=== PATIENT | male | born 1955 | race African-American/Black ===

== ENCOUNTER 2020-11-21 16:55 | Inpatient (IN) | payer BC ==
[~2020-11-21] VITALS: Ht 177.8 cm; Wt 139.7 kg
[~2020-11-21 16:55] MED LIST: APIX5TAB MT; FURO20TA4 PO; HYDR-4001 PO; TAMS-11 PO; norco
[2020-11-21] MEDS ORDERED: LEVETIRACETAM 500MG PREMIX 100 ML IV ONE (17:30)
[2020-11-21 17:55] LABS: BASOPHILS % 0.5 % (0.0-2.0); EOSINOPHILS % 3.2 % (0.0-5.0); HEMATOCRIT. 32.9 % (42.0-52.0); HEMOGLOBIN. 11.1 g/dL (14.0-18.0); LYMPHOCYTES % 9.5 % (20.0-50.0); MEAN CORPUSCULAR HEMOGLOBIN 31.1 pg (28.0-32.0); MEAN CORPUSCULAR VOLUME 92.2 fL (80.0-94.0); MEAN PLATELET VOLUME 6.4 fl (7.4-10.4); MONOCYTES % 14.2 % (2.0-8.0); NEUTROPHILS % 72.6 % (40.0-76.0); PLATELET 79 x1000/uL (130-400); RED BLOOD CELL COUNT 3.56 mill/uL (4.7-6.1); RED CELL DISTRIBUTION WIDTH 15.7 % (11.6-14.6)
[2020-11-21 18:14] LABS: CHLORIDE 106 mEq/L (98-107)
[2020-11-21] MEDS ORDERED: POTASSIUM CHLORIDE 20MEQ TABLET SR PO NR (18:30)
[2020-11-21 20:19] LABS: CLARITY URINE CLEAR (CLEAR); COLOR URINE DARK YELLOW (YELLOW); KETONES URINE TRACE (NEGATIVE); LEUKOCYTE ESTERASE URINE TRACE (NEGATIVE); NITRITE URINE NEGATIVE (NEGATIVE); OCCULT BLOOD URINE 3+ (NEGATIVE); PROTEIN URINE TRACE (NEGATIVE); SPECIFIC GRAVITY URINE 1.031 (1.005-1.030)
[2020-11-21] MEDS ORDERED: DEXAMETHASONE 10 MG/ML VIAL IV ONE (21:30)
[2020-11-21] MEDS ORDERED: CLONIDINE 0.1MG TABLET PO PRN (22:30)
[2020-11-21] MEDS ORDERED: LORAZEPAM 2MG/ML CPJ IV PRN (22:30)
[2020-11-21] MEDS ORDERED: ONDANSETRON HCL 4MG/2ML INJ IV PRN (22:30)
[2020-11-21] MEDS: SODIUM CHLORIDE 0.45% 1,000 ML IV SCH (22:34)
[2020-11-22] VITALS: BP 115/60
[2020-11-22] MEDS: DEXAMETHASONE 4MG/ML 1ML VIAL IV SCH ×4 (00:29→18:50)
[2020-11-22 04:00] VITALS: BP 124/79
[2020-11-22 07:16] LABS: CHLORIDE 106 mEq/L (98-107)
[2020-11-22 07:44] LABS: HEMOGLOBIN. 10.9 g/dL (14.0-18.0); MEAN CORPUSCULAR HEMOGLOBIN 31.4 pg (28.0-32.0); MEAN CORPUSCULAR VOLUME 92.1 fL (80.0-94.0); MEAN PLATELET VOLUME 6.4 fl (7.4-10.4); PLATELET 56 x1000/uL (130-400); RED BLOOD CELL COUNT 3.47 mill/uL (4.7-6.1); RED CELL DISTRIBUTION WIDTH 15.7 % (11.6-14.6)
[2020-11-22 08:00] VITALS: BP 113/56
[2020-11-22] MEDS ORDERED: LEVETIRACETAM 500MG PREMIX 100 ML IV SCH ×2 (09:00→11:30)
[2020-11-22] MEDS: AMLODIPINE 10MG TABLET PO SCH (10:08)
[2020-11-22] MEDS ORDERED: APIXABAN 5 MG TABLET PO SCH (10:15)
[2020-11-22 12:00] VITALS: BP 109/56
[2020-11-22] MEDS: TAMSULOSIN HCL 0.4MG SR CAPSULE PO SCH (12:07)
[2020-11-22] MEDS: SODIUM CHLORIDE 0.45% 1,000 ML IV SCH (12:08)
[2020-11-22] MEDS: FUROSEMIDE 20MG TABLET PO SCH ×2 (12:08→21:14)
[2020-11-22 16:00] VITALS: BP 125/60
[2020-11-22 18:07] LABS: PLATELET ESTIMATE DECREASED
[2020-11-22 20:00] VITALS: BP 122/57
[2020-11-22] MEDS: LEVETIRACETAM 500MG TABLET PO SCH (21:14)
[2020-11-23] VITALS: BP 116/60
[2020-11-23] MEDS: DEXAMETHASONE 4MG/ML 1ML VIAL IV SCH ×5 (00:11→23:18)
[2020-11-23 04:00] VITALS: BP 124/72
[2020-11-23 08:00] VITALS: BP 118/70
[2020-11-23] MEDS: LEVETIRACETAM 500MG TABLET PO SCH ×2 (09:01→20:19)
[2020-11-23] MEDS: FUROSEMIDE 20MG TABLET PO SCH ×2 (09:01→20:19)
[2020-11-23] MEDS: TAMSULOSIN HCL 0.4MG SR CAPSULE PO SCH (09:02)
[2020-11-23] MEDS: AMLODIPINE 10MG TABLET PO SCH (09:02)
[2020-11-23 12:00] VITALS: BP 119/64
[2020-11-23 16:00] VITALS: BP 108/61
[2020-11-23 20:00] VITALS: BP 111/60
[2020-11-24] VITALS: BP 119/83
[2020-11-24 04:00] VITALS: BP 123/68
[2020-11-24] MEDS: SODIUM CHLORIDE 0.45% 1,000 ML IV SCH ×2 (04:41→16:59)
[2020-11-24] MEDS: DEXAMETHASONE 4MG/ML 1ML VIAL IV SCH ×4 (05:22→23:09)
[2020-11-24 08:00] VITALS: BP 97/42
[2020-11-24] MEDS: TAMSULOSIN HCL 0.4MG SR CAPSULE PO SCH (10:02)
[2020-11-24] MEDS: FUROSEMIDE 20MG TABLET PO SCH ×2 (10:02→20:44)
[2020-11-24] MEDS: AMLODIPINE 10MG TABLET PO SCH (10:02)
[2020-11-24] MEDS: LEVETIRACETAM 500MG TABLET PO SCH ×2 (10:02→20:44)
[2020-11-24 12:00] VITALS: BP 112/60
[2020-11-24 16:00] VITALS: BP 107/62
[2020-11-24 20:00] VITALS: BP 109/59
[2020-11-25] VITALS: BP 97/58
[2020-11-25 04:00] VITALS: BP 113/66
[2020-11-25] MEDS: DEXAMETHASONE 4MG/ML 1ML VIAL IV SCH ×3 (05:00→17:08)
[2020-11-25] MEDS: SODIUM CHLORIDE 0.45% 1,000 ML IV SCH ×2 (05:00→20:32)
[2020-11-25 08:00] VITALS: BP 110/68
[2020-11-25] MEDS: LEVETIRACETAM 500MG TABLET PO SCH ×2 (08:33→20:32)
[2020-11-25] MEDS: AMLODIPINE 10MG TABLET PO SCH (08:33)
[2020-11-25] MEDS: FUROSEMIDE 20MG TABLET PO SCH ×2 (08:33→20:32)
[2020-11-25] MEDS: TAMSULOSIN HCL 0.4MG SR CAPSULE PO SCH (08:34)
[2020-11-25 12:00] VITALS: BP 116/66
[2020-11-25 16:00] VITALS: BP 118/73
[2020-11-25] MEDS: ACETAMINOPHEN 325MG TABLET PO PRN (17:08)
[2020-11-25 20:00] VITALS: BP 109/65
[2020-11-26] VITALS: BP 139/77
[2020-11-26] MEDS: DEXAMETHASONE 4MG/ML 1ML VIAL IV SCH ×5 (02:13→23:37)
[2020-11-26 04:00] VITALS: BP 123/70
[2020-11-26 08:00] VITALS: BP 158/65
[2020-11-26] MEDS: TAMSULOSIN HCL 0.4MG SR CAPSULE PO SCH (08:33)
[2020-11-26] MEDS: FUROSEMIDE 20MG TABLET PO SCH ×2 (08:33→21:13)
[2020-11-26] MEDS: LEVETIRACETAM 500MG TABLET PO SCH ×2 (08:33→21:13)
[2020-11-26] MEDS: AMLODIPINE 10MG TABLET PO SCH (08:33)
[2020-11-26] MEDS: SODIUM CHLORIDE 0.45% 1,000 ML IV SCH ×2 (08:34→21:54)
[2020-11-26 12:00] VITALS: BP 105/58
[2020-11-26 16:00] VITALS: BP 117/60
[2020-11-26 20:00] VITALS: BP 108/61
[2020-11-27 00:15] VITALS: BP 109/65
[2020-11-27 04:00] VITALS: BP 115/61
[2020-11-27] MEDS: DEXAMETHASONE 4MG/ML 1ML VIAL IV SCH ×2 (05:09→13:03)
[2020-11-27 08:00] VITALS: BP 114/64
[2020-11-27] MEDS: FUROSEMIDE 20MG TABLET PO SCH ×2 (09:15→21:05)
[2020-11-27] MEDS: LEVETIRACETAM 500MG TABLET PO SCH ×2 (09:15→21:05)
[2020-11-27] MEDS: AMLODIPINE 10MG TABLET PO SCH (09:15)
[2020-11-27] MEDS: TAMSULOSIN HCL 0.4MG SR CAPSULE PO SCH (09:15)
[2020-11-27 12:00] VITALS: BP 116/63
[2020-11-27 16:00] VITALS: BP 115/62
[2020-11-27 20:00] VITALS: BP 101/53
[2020-11-28] VITALS: BP 126/67
[2020-11-28 04:00] VITALS: BP 134/64
[2020-11-28] MEDS: ACETAMINOPHEN 325MG TABLET PO PRN (06:18)
[2020-11-28 08:00] VITALS: BP 104/55
[2020-11-28] MEDS: FUROSEMIDE 20MG TABLET PO SCH (08:48)
[2020-11-28] MEDS: LEVETIRACETAM 500MG TABLET PO SCH (08:48)
[2020-11-28] MEDS: AMLODIPINE 10MG TABLET PO SCH (08:49)
[2020-11-28] MEDS: TAMSULOSIN HCL 0.4MG SR CAPSULE PO SCH (08:49)
[2020-11-28 11:54] VITALS: BP 100/53
[2020-11-28 12:00] VITALS: BP 100/53
== END 2020-11-28 14:20 | DRG 54 ==
LOC: ER 16:55 → 7EST 21:32 → ENRESERV 22:53
PROVIDERS: ADMIT Hospitalist; ATTEND Hospitalist
DX: C79.31 Secondary malignant neoplasm of brain (principal); E43 Unspecified severe protein-calorie malnutrition; C79.51 Secondary malignant neoplasm of bone; G40.409 Other generalized epilepsy and epileptic syndromes, not intractable, without status epilepticus; D63.8 Anemia in other chronic diseases classified elsewhere; E78.00 Pure hypercholesterolemia, unspecified; D69.6 Thrombocytopenia, unspecified; Z85.038 Personal history of other malignant neoplasm of large intestine; Z79.01 Long term (current) use of anticoagulants; Z79.899 Other long term (current) drug therapy; I10 Essential (primary) hypertension
CPT/HCPCS: 36415; 80053; 81003; 82962; 85025; 93005; 97110; 97116; 97162; 97166; 97530; 97535; 99291; C1893; J1100; J1953